=== PATIENT | female | born 1980 | race Hispanic/Latino ===

== ENCOUNTER 2017-03-20 14:06 | Inpatient (IN) | payer MEDICARE ==
[2017-03-20 15:40] LABS: Basophils % (Auto) 0.4 % (0.0-1.8); Eosinophils % (Auto) 4.1 % (0.0-4.3); Hematocrit 29.3 % (30.3-42.9); Hemoglobin 9.9 gm/dl (10.1-14.3); Mean Corpuscular HGB Conc 34 % (30-34); Mean Corpuscular Hemoglobin 33 pg (28-32); Mean Corpuscular Volume 99 fl (79-97); Platelet Count 161 K/mm3 (140-440); Red Blood Count 2.98 M/mm3 (3.65-5.03); Red Cell Distribution Width 14.3 % (13.2-15.2); White Blood Count 8.2 K/mm3 (4.5-11.0)
[2017-03-20 16:03] LABS: Anion Gap 22 mmol/L; BUN/Creatinine Ratio 7.81; Blood Urea Nitrogen 43 mg/dL (7-17); Calcium 7.9 mg/dL (8.4-10.2); Carbon Dioxide 16 mmol/L (22-30); Chloride 108.1 mmol/L (98-107); Glucose 99 mg/dL (65-100); Potassium 4.8 mmol/L (3.6-5.0); Sodium 141 mmol/L (137-145)
--- NOTE | 2017-03-20 22:06 | Emergency Department Report ---
HPI - General Chief Complaint: Dyspnea/Respdistress Time Seen by Provider: 03/20/17 21:25 - HPI HPI: This is a 36-year-old female presents to the emergency department from home, sent in by her occasional caregiver Dr. Clemons, with the complaint of no dialysis for the past 2-3 weeks. The patient says she used to see Dr. Yepez but she was "kicked out of the clinic" because of a "difference of opinion." Because of that she has not been to dialysis in the past 2-3 weeks. She complains of some shortness of breath and lower extremity swelling. She denies any fever, chest pain, back pain, nausea, vomiting. She has a left upper extremity fistula. She was born with kidney disease. She previously was on hemodialysis Saturday, Saturday, Saturday. She also has history of COPD, GERD, migraines, hypertension. No recent travel or sick contacts at home. She does not have a primary care doctor. She is a tobacco smoker. ED Past Medical Hx - Past Medical History Hx Hypertension: Yes Hx GERD: Yes Hx Renal Disease: Yes (BORN WITH KIDNEY DISEASE) Hx Arthritis: Yes Hx Headaches / Migraines: Yes (MIGRAINES) Hx Seizures: Yes (2011 NO MEDS NOW) Hx Asthma: Yes ( CHILD) Hx COPD: Yes Additional medical history: HD on . hydrocephalus. CAD - Surgical History Hx Cholecystectomy: Yes Additional Surgical History: Perm cath right chest, left arm AV fistula, Ureter surgery, Removal of left kidney, AV shunt in head, Abd. shunt, Spinal cord stimulator, Sinus surgery, Deviated septum surgery, Hysterectomy - Social History Smoking Status: Current Every Day Smoker Substance Use Type: None - Medications Home Medications: Home Medications Medication Instructions Recorded Confirmed Last Taken Type Metoclopramide [Reglan TAB] 5 mg PO 4XD 08/09/15 03/20/17 10/25/16 04:30 History Promethazine [Phenergan TAB] 25 mg PO Q6HR PRN 08/09/15 03/20/17 10/24/16 History Sevelamer Carbonate [Renvela] 800 mg PO TIDWM 08/09/15 03/20/17 10/25/16 04:30 History Albuterol Sulfate [Proair Hfa] 2 puff INHALATION BID PRN 06/14/16 03/20/1710/24 History AtorvaSTATin [Lipitor] 40 mg PO QHS #30 tablet 06/14/16 03/20/17 10/24/16 Rx Oxycodone HCl/Acetaminophen 1 tab PO Q4H PRN 06/14/16 03/20/17 10/24/16 History [Percocet 10/325 mg] Tiotropium [place] [Spiriva] 1 cap INHALATION DAILY 06/14/16 03/20/17 10/24/16 History Vit B Cplx #11/FA/C/Biot/Zn Ox 800 mg PO DAILY 06/14/16 03/20/17 10/25/16 04:30 History [Dialyvite with Zinc Tablet] Zolpidem [Ambien] 10 mg PO QHS 10/23/16 03/20/17 10/24/16 History Pantoprazole Sodium 1 tab PO QDAY 10/25/16 03/20/17 10/25/16 04:30 History Budesoni/Formotero 160-4.5(Nf) 2 puff IH BID 03/20/17 03/20/17 Unknown History [Symbicort 160-4.5 (Nf)] lamoTRIgine [LaMICtal] 150 mg PO BID 03/20/17 03/20/17 Unknown History ED Review of Systems ROS: Stated complaint: SWOLLEN Other details as noted in HPI Comment: All other systems reviewed and negative Constitutional: denies: chills, fever Eyes: denies: eye pain, eye discharge, vision change ENT: denies: ear pain, throat pain Respiratory: shortness of breath. denies: cough Cardiovascular: edema. denies: chest pain Gastrointestinal: denies: abdominal pain, nausea, diarrhea Genitourinary: denies: urgency, dysuria, discharge Musculoskeletal: denies: back pain, joint swelling, arthralgia Skin: denies: rash, lesions Neurological: denies: headache, weakness, paresthesias Physical Exam - Physical Exam Vital Signs: Vital Signs 03/20/17 15:06 Temperature 97.7 F Pulse Rate 86 Respiratory 20 Rate Blood Pressure 125/78 O2 Sat by Pulse 96 Oximetry Physical Exam: GENERAL: The patient is well-developed well-nourished. HEENT: Normocephalic. Atraumatic. Extraocular motions are intact. Patient has moist mucous membranes. Pupils equal reactive to light bilaterally. NECK: Supple. Trachea is midline. CHEST/LUNGS: Coarse breath sounds at the chest. No tachypnea or accessory muscle use. There is no respiratory distress noted. HEART/CARDIOVASCULAR: Regular. There is no tachycardia. There is no gallop rub or murmur. ABDOMEN: Abdomen is soft, nontender. Patient has normal bowel sounds. There is no abdominal distention. SKIN: There is some mild pitting edema to the bilateral lower extremities. No skin color change. Skin is warm and dry. NEURO: The patient is awake, alert, and oriented. The patient is cooperative. The patient has no focal neurologic deficits. The patient has normal speech. MUSCULOSKELETAL: There is no tenderness or deformity. There is no limitation range of motion. There is no evidence of acute injury. Patent dialysis fistula to the left upper extremity. ED Course Vital Signs 03/20/17 15:06 Temperature 97.7 F Pulse Rate 86 Respiratory 20 Rate Blood Pressure 125/78 O2 Sat by Pulse 96 Oximetry - Consultations Consultation #1: I spoke with the patient's new occasional caregiver, Dr. Clemons, who asked patient to be admitted to the hospitalist service and the patient will receive dialysis tomorrow. 03/20/17 22:11 ED Medical Decision Making - Lab Data Result diagrams: 03/20/17 15:13 03/20/17 15:13 - EKG Data -: EKG Interpreted by Me EKG shows normal: sinus rhythm, axis, intervals, QRS complexes (q waves to anterior leads), ST-T waves Rate: normal - EKG Data When compared to previous EKG there are: no significant change Interpretation: unchanged when compared t (05/19/16) - Radiology Data Radiology results: image reviewed interpreted by me: Chest x-ray shows some cardiomegaly and some pulmonary vascular congestion. Mild basilar pleural effusions. - Medical Decision Making 36-year-old female presents in need of dialysis after not receiving dialysis for the past 2-3 weeks. Sent in by her current occasional caregiver who has been contacted and would like the patient dialyzed tomorrow but admitted to the hospitalist service. There is no hyperkalemia. Vital signs stable. Patient is not in any acute distress. Patient has been accepted for admission by the hospitalist, Dr. Lopez. - Differential Diagnosis CHF, renal insufficiency, pneumonia Critical Care Time: No Critical care attestation.: If time is entered above; I have spent that time in minutes in the direct care of this critically ill patient, excluding procedure time. ED Disposition Clinical Impression: End stage renal disease on dialysis, Shortness of breath Edema Qualifiers: Edema type: unspecified Qualified Code(s): R60.9 - Edema, unspecified Disposition: OP ADMITTED IP TO THIS HOSP Is pt being admited?: Yes Condition: Stable Referrals: JADYN CLEMONS MD [Primary Care Provider] - 3-5 Days Time of Disposition: 23:01
[2017-03-20] MEDS ORDERED: PERCOCET 5/325 PO ONE (22:32)
--- NOTE | 2017-03-20 23:52 | History and Physical Report ---
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 Patient was also has a history of pseudotumor cerebri, hypertension, seizure, COPD, GERD She also complaining of dysphagia to solid Patient denies cough, abdominal pain, hematochezia, dysuria, frequency, focal weakness, dysarthria, fever chills, polydipsia polyuria, hot or cold intolerance , easy bruisability, or rash or bleeding from mucosal membrane, rhinorrhea, epistaxis, earache, tinnitus, blurry vision, eye discharge, anxiety, depression. Other review of systems negative PAST SURGICAL HISTORY: Cholecystectomy, AV fistula, shunting membrane, left nephrectomy, spinal cord stimulator, sinus surgery, hysterectomy SOCIAL HISTORY: Smoke 5 cigarettes day, no alcohol or drugs FAMILY HISTORY: Hypertension Medications and Allergies Allergies Allergy/AdvReac Type Severity Reaction Status Date / Time cefaclor [From Ceclor] AdvReac Itching Verified 03/20/17 15:04 vancomycin AdvReac Rash Verified 03/20/17 15:04 Home Medications Medication Instructions Recorded Confirmed Last Taken Type Metoclopramide [Reglan TAB] 5 mg PO 4XD 08/09/15 03/20/17 10/25/16 04:30 History Promethazine [Phenergan TAB] 25 mg PO Q6HR PRN 08/09/15 03/20/17 10/24/16 History Sevelamer Carbonate [Renvela] 800 mg PO TIDWM 08/09/15 03/20/17 10/25/16 04:30 History Albuterol Sulfate [Proair Hfa] 2 puff INHALATION BID PRN 06/14/16 03/20/1710/24 History AtorvaSTATin [Lipitor] 40 mg PO QHS #30 tablet 06/14/16 03/20/17 10/24/16 Rx Oxycodone HCl/Acetaminophen 1 tab PO Q4H PRN 06/14/16 03/20/17 10/24/16 History [Percocet 10/325 mg] Tiotropium [place] [Spiriva] 1 cap INHALATION DAILY 06/14/16 03/20/17 10/24/16 History Vit B Cplx #11/FA/C/Biot/Zn Ox 800 mg PO DAILY 06/14/16 03/20/17 10/25/16 04:30 History [Dialyvite with Zinc Tablet] Zolpidem [Ambien] 10 mg PO QHS 10/23/16 03/20/17 10/24/16 History Pantoprazole Sodium 1 tab PO QDAY 10/25/16 03/20/17 10/25/16 04:30 History Budesoni/Formotero 160-4.5(Nf) 2 puff IH BID 03/20/17 03/20/17 Unknown History [Symbicort 160-4.5 (Nf)] lamoTRIgine [LaMICtal] 150 mg PO BID 03/20/17 03/20/17 Unknown History Exam - Physical Exam Narrative exam: Gen. appearance: Patient lying in bed, no apparent distress HEENT: Normocephalic, atraumatic, pupils equally round and reactive to light, extraocular movement intact, and no sclericterus,. No JVD or thyromegaly or nodule,neck supple, no carotid bruit ,mucous membranes moist, no exudate or erythema Heart: S1, S2, regular rate and rhythm Lungs: Clear to auscultation bilaterally, breathing comfortable Abdomen: Positive bowel sounds, nontender, nondistended, no organomegaly Extremity: No edema, cyanosis, clubbing Skin: No rash, nodules, warm, dry Neuro: Oriented 3, cranial nerves II-12 intact, speech is fluent, motor and sensory intact - Constitutional Vitals: Temp Pulse Resp BP Pulse Ox 97.7 F 86 20 125/78 96 03/20/17 15:06 03/20/17 15:06 03/20/17 15:06 03/20/17 15:06 03/20/17 15:06 Results - Labs CBC & Chem 7: 03/20/17 15:13 03/20/17 15:13 Labs: Abnormal lab results 03/20/17 03/20/17 Range/Units 15:13 15:13 RBC 2.98 L (3.65-5.03) M/mm3 Hgb 9.9 L (10.1-14.3) gm/dl Hct 29.3 L (30.3-42.9) % MCV 99 H (79-97) fl MCH 33 H (28-32) pg Chloride 108.1 H (98-107) mmol/L Carbon Dioxide 16 L (22-30) mmol/L BUN 43 H (7-17) mg/dL Creatinine 5.5 H (0.7-1.2) mg/dL Calcium 7.9 L (8.4-10.2) mg/dL NT-Pro-B Natriuret Pep 2689 H (0-450) pg/mL - Imaging and Cardiology EKG: image reviewed Chest x-ray: image reviewed Assessment and Plan End-stage renal disease on dialysis Dysphagia Hypertension Seizure COPD GERD Pseudotumor cerebri Obesity Admit to medicine Consult renal for dialysis, consult GI Continue appropriate outpatient medication, start DVT prophylaxis
[2017-03-20] MEDS ORDERED: ZOFRAN IV ONE (23:55)
[2017-03-21] MEDS ORDERED: TYLENOL PO PRN (00:52)
[2017-03-21] MEDS ORDERED: MILK OF MAGNESIA PO PRN (00:52)
[2017-03-21] MEDS ORDERED: DULCOLAX PR PRN (00:52)
[2017-03-21] MEDS ORDERED: ZOFRAN IV PRN (00:52)
[2017-03-21] MEDS ORDERED: NON-FORMULARY (Oxycodone Hcl/Acetaminophen [Percocet 10/325 Mg] 1 TAB) PO PRN (01:10)
[2017-03-21] MEDS ORDERED: PERCOCET 5/325 PO PRN (01:29)
[2017-03-21] MEDS ORDERED: ROXICODONE PO PRN (01:30)
--- NOTE | 2017-03-21 05:38 | Consultation ---
History of Present Illness - Reason for Consult Consult date: 03/20/17 end stage renal disease, metabolic acidosis, other (Volume overload) - History of Present Illness Patient is a 36-year-old female with history significant for COPD, GERD, migraines, hypertension and ESRD on hemodialysis(MWF) was sent to the ER from my office for further evaluation. Patient was last dialyzed on the February,. She was discharged from [facility] hemodialysis, the reasons are unknown. Patient complains of some shortness of breath and lower extremity swelling. She denies any fever, chills, chest pain, nausea, vomiting , abd pain, cough, orthopnea, PND or confusion. She has a left upper extremity fistula. She does not have a primary care doctor. Past History Past Medical History: anemia, diabetes, dialysis, ESRD, hypertension Past Surgical History: Other (AVF creation) Medications and Allergies Allergies Allergy/AdvReac Type Severity Reaction Status Date / Time cefaclor [From Ceclor] AdvReac Itching Verified 03/20/17 15:04 vancomycin AdvReac Rash Verified 03/20/17 15:04 Home Medications Medication Instructions Recorded Confirmed Last Taken Type Metoclopramide [Reglan TAB] 5 mg PO 4XD 08/09/15 03/20/17 10/25/16 04:30 History Promethazine [Phenergan TAB] 25 mg PO Q6HR PRN 08/09/15 03/20/17 10/24/16 History Sevelamer Carbonate [Renvela] 800 mg PO TIDWM 08/09/15 03/20/17 10/25/16 04:30 History Albuterol Sulfate [Proair Hfa] 2 puff INHALATION BID PRN 06/14/16 03/20/1710/24 History AtorvaSTATin [Lipitor] 40 mg PO QHS #30 tablet 06/14/16 03/20/17 10/24/16 Rx Oxycodone HCl/Acetaminophen 1 tab PO Q4H PRN 06/14/16 03/20/17 10/24/16 History [Percocet 10/325 mg] Tiotropium [place] [Spiriva] 1 cap INHALATION DAILY 06/14/16 03/20/17 10/24/16 History Vit B Cplx #11/FA/C/Biot/Zn Ox 800 mg PO DAILY 06/14/16 03/20/17 10/25/16 04:30 History [Dialyvite with Zinc Tablet] Zolpidem [Ambien] 10 mg PO QHS 10/23/16 03/20/17 10/24/16 History Pantoprazole Sodium 1 tab PO QDAY 10/25/16 03/20/17 10/25/16 04:30 History Budesoni/Formotero 160-4.5(Nf) 2 puff IH BID 03/20/17 03/20/17 Unknown History [Symbicort 160-4.5 (Nf)] lamoTRIgine [LaMICtal] 150 mg PO BID 03/20/17 03/20/17 Unknown History Active Meds: Active Medications Acetaminophen (Tylenol) 650 mg PO Q4H PRN PRN Reason: Pain MILD(1-3)/Fever >100.5/WHITE Arformoterol Tartrate (Brovana Nebu) 15 mcg IH Q12HRT [facility] Atorvastatin Calcium (Lipitor) 40 mg PO QHS [facility] Bisacodyl (Dulcolax) 10 mg DE QDAY PRN PRN Reason: Constipation unrelieved by MOM Budesonide (Pulmicort) 1 mg IH Q12HRT [facility] Lamotrigine (Lamictal) 150 mg PO BID [facility] Magnesium Hydroxide (Milk Of Magnesia) 30 ml PO Q4H PRN PRN Reason: Constipation Metoclopramide HCl (Reglan) 5 mg PO ACHS [facility] Ondansetron HCl (Zofran) 4 mg IV Q8H PRN PRN Reason: N/V unrelieved by Reglan Oxycodone HCl (Roxicodone) 5 mg PO Q4H PRN PRN Reason: Pain Oxycodone/Acetaminophen (Percocet 5/325) 1 tab PO Q4H PRN PRN Reason: Pain Pantoprazole Sodium (Protonix) 40 mg PO QDAY [facility] Sevelamer Carbonate (Renvela) 800 mg PO TIDWM [facility] Vitamin B Complex/Folic Acid (Folbee Plus Cz) 1 each PO QDAY [facility] Review of Systems Constitutional: weight gain, chronic pain, no weight loss, no fever, no chills, no anorexia, no fatigue, no weakness, no poor appetite Ears, nose, mouth and throat: no sinus pressure, no sinus pain, no epistaxis Breasts: deferred Cardiovascular: edema, shortness of breath, dyspnea on exertion, high blood pressure, leg edema, no chest pain, no orthopnea, no syncope, no lightheadedness Respiratory: no cough, no hemoptysis Gastrointestinal: no abdominal pain, no nausea, no vomiting, no diarrhea, no melena Genitourinary Female: no dysuria, no hematuria Rectal: no bleeding Musculoskeletal: no neck stiffness, no hot joints, no morning stiffness Integumentary: no rash, no jaundice Neurological: no head injury, no paralysis, no weakness, no syncope Psychiatric: no change in appetite, no confusion Endocrine: weight change, no excessive sweating Hematologic/Lymphatic: no easy bruising, no easy bleeding Exam - Vital Signs Vital signs: Vital Signs Temp Pulse Resp BP Pulse Ox 97.7 F 86 20 125/78 96 03/20/17 15:06 03/20/17 15:06 03/20/17 15:06 03/20/17 15:06 03/20/17 15:06 - General Appearance General appearance: well-developed, well-nourished, appears stated age, other ( no distress) EENT: ATNC, PERRL, mucous membranes moist, hearing intact, vision intact Neck: Present: neck supple, trachea midline Respiratory: Clear to Ascultation Heart: regular, S1S2, no murmurs Gastrointestinal: Present: normoactive bowel sounds. Absent: tenderness, distended Integumentary: no rash, warm and dry Neurologic: no focal deficit, no asterixis, alert and oriented x3, CN 3-12 intact Musculoskeletal: Present: other (1+ pitting edema of both LEs noted) Results - Lab Results 03/20/17 15:13 03/20/17 15:13 Most recent lab results Calcium 7.9 mg/dL (8.4-10.2) L 03/20/17 15:13 Assessment and Plan - Patient Problems (1) End stage renal disease on dialysis Status: Chronic Plan to address problem: Patient missed hemodialysis for the past 2 weeks. Plan to do hemodialysis in AM. (2) Edema Status: Chronic Qualifiers: Edema type: unspecified Malnutrition edema type: M Trimester: T Qualified Code(s): R60.9 - Edema, unspecified Plan to address problem: UF with hemodialysis. (3) Shortness of breath Status: Acute Plan to address problem: Clinically stable. Monitor. Hemodialysis in AM. (4) Anemia associated with chronic renal failure Status: Chronic Plan to address problem: Epogen.
[2017-03-21] MEDS ORDERED: REGLAN PO SCH (07:30)
[2017-03-21] MEDS ORDERED: PULMICORT IH SCH (08:00)
[2017-03-21] MEDS ORDERED: BROVANA NEBU IH SCH (08:00)
[2017-03-21] MEDS ORDERED: RENVELA PO SCH (08:00)
[2017-03-21] MEDS ORDERED: NACL 0.9% 100 ML IV PRN (08:43)
--- NOTE | 2017-03-21 08:43 | Progress Note ---
Subjective Date of service: 03/21/17 Interval history: Patient left AMA before I can see her. She called me later this afternoon. No new symptoms. Patient was advised to go back to the nearest ER for further evaluation. She wants to go to [facility] ER. Objective - Vital Signs Vital signs: Vital Signs - 12hr 03/21/17 03/21/17 03/21/17 00:00 00:10 00:20 Pulse Rate 84 93 H 85 Respiratory 13 17 12 Rate Blood Pressure 141/70 141/70 107/55 O2 Sat by Pulse 96 98 98 Oximetry 03/21/17 03/21/17 03/21/17 00:28 03:41 06:12 Pulse Rate 81 Respiratory 20 Rate Blood Pressure O2 Sat by Pulse 98 96 Oximetry - Lab 03/20/17 15:13 03/20/17 15:13 Most recent lab results Calcium 7.9 mg/dL (8.4-10.2) L 03/20/17 15:13
[2017-03-21 08:54] VITALS: BP 120/71
--- NOTE | 2017-03-21 09:09 | XRay Report ---
CHEST 2 VIEWS INDICATION: Shortness of breath. Dialysis patient. COMPARISON: 11/06/2016 FINDINGS: Frontal and lateral chest radiographs demonstrate greater prominence of lung markings and slightly exaggerated cardiomediastinal silhouette, possibly congestive. No large pleural effusions or cephalization. 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 Interval right sided central catheter removal. Mild mid thoracic spine degenerative spurring. Possible cholecystectomy clips. CONCLUSION: Slight fluid overload/pulmonary vascular congestion developing with interval right sided central catheter removal since October 2016, as described. Please correlate. Thank you for the opportunity to participate in this patient's care.
--- NOTE | 2017-03-21 09:55 | Admit Criteria Form ---
Admission Criteria Documentation: RENAL FAILURE, CHRONIC Clinical Indications for Admission to Inpatient Care (Place 'X' for any and all applicable criteria): Admission is indicated for ANY ONE of the following (1)(2)(3)(4)(5): [X ]I. Inpatient admission required rather than observation care (Use Renal Failure, Chronic: Observation Care Criteria as appropriate) because of ANY ONE of the following: [ ]a) Volume overload or uremic symptoms (eg, clinically significant pulmonary edema, hypertension, pericarditis, acidosis) too severe for, or not responsive (eg, for over 24 hours) to emergency department or observation care dialysis or treatment regimen (11) [ ]b) Hemodynamic instability that is severe or persistent [ ]c) Respiratory distress that is severe or persistent (11) [ ]d) Clinically significant electrolyte abnormality that requires inpatient care (eg,hyperkalemia with severe ECG findings)[B] [ ]e) Supplement O2 or respiratory therapy for over 24hrs that is performable only in acute inpatient setting [ ]f) Continuous IV infusion of anticoagulation, platelet inhibitor, vasoactive, or Antiarrhythmic medication (15), [ ]g) Pulmonary artery catheter monitoring [ ]h) Temporary pacemaker placement [ ]i) Emergent pericardiocentesis [X ]j) Other condition, treatment or monitoring requiring inpatient admission [ ]II. Unexplained syncope [A] [ ]III. Recurrent seizures [ ]IV. Severe infections not treatable in outpatient setting (eg, peritonitis)(9 ) [ ]V. Cardiac arrhythmias of immediate concern [ ]. Encephalopathy [ ]VII.Bleeding abnormalities (eg, platelet dysfunction) with active (eg, gastrointestinal) bleeding Extended stay beyond goal length of stay may be needed for (3)(4)(35)(36): [ ]a) Continuing uremic complications [ ]b) Comorbidities or complications The original [employer] content created by [employer] has been revised. The portions of the content which have been revised are identified through the use of italic text or in bold, and [employer] has neither reviewed nor approved the modified material. All other unmodified content is copyright [employer]. Please see references footnoted in the original [employer] edition 2016
[2017-03-21] MEDS ORDERED: ZINC PO SCH (10:00)
[2017-03-21] MEDS ORDERED: VIT B CPLX PO SCH (10:00)
[2017-03-21] MEDS ORDERED: NON-FORMULARY (Budesoni/Formotero 160-4.5(Nf) 2 PUFF) IH SCH (10:00)
[2017-03-21] MEDS ORDERED: BIOT PO SCH (10:00)
[2017-03-21] MEDS ORDERED: ZN OX PO SCH (10:00)
[2017-03-21] MEDS ORDERED: NON-FORMULARY (Lamotrigine [Lamictal] 150 MG) PO SCH (10:00)
[2017-03-21] MEDS ORDERED: PROTONIX PO SCH (10:00)
[2017-03-21] MEDS ORDERED: LaMICtal PO SCH (10:00)
[2017-03-21] MEDS ORDERED: PROCRIT SUB-Q ONE (10:00)
[2017-03-21] MEDS ORDERED: [UNRECOGNIZED DRUG - OTHER] PO SCH (10:00)
[2017-03-21] MEDS ORDERED: FOLBEE PLUS CZ PO SCH (10:00)
--- NOTE | 2017-03-21 10:47 | Discharge Summary ---
Providers - Providers Date of Admission: 03/20/17 23:51 Attending physician: ALEKSANDR BELL Primary care physician: JADYN CLEMONS Hospitalization Condition: Stable Hospital course: Left AMA before been seen. Disposition: LEFT AGAINST MEDICAL ADVICE Core Measure Documentation - Palliative Care Palliative Care/ Comfort Measures: Not Applicable - Core Measures Any of the following diagnoses?: none Exam - Constitutional Vitals: Temp Pulse Resp BP Pulse Ox 97.8 F 87 18 120/71 97 03/21/17 08:52 03/21/17 08:52 03/21/17 08:52 03/21/17 08:52 03/21/17 08:52 Plan Follow up with: JADYN CLEMONS MD [Primary Care Provider] - 3-5 Days Forms: AMA Form
== END 2017-03-21 09:05 | disposition left against medical advice (07) | DRG 640 ==
LOC: ED 14:06 → 4A 23:51
PROVIDERS: ADMIT Internal Medicine; ATTEND Internal Medicine
PROC: 5A09357 Assistance with Respiratory Ventilation, Less than 24 Consecutive Hours, Continuous Positive Airway Pressure (ICD-10-PCS; principal; 2017-03-21)
DX: E87.70 Fluid overload, unspecified (principal); N18.6 End stage renal disease; I12.0 Hypertensive chronic kidney disease with stage 5 chronic kidney disease or end stage renal disease; Z68.41 Body mass index [BMI] 40.0-44.9, adult; J44.9 Chronic obstructive pulmonary disease, unspecified; R56.9 Unspecified convulsions; K21.9 Gastro-esophageal reflux disease without esophagitis; G93.2 Benign intracranial hypertension; E66.9 Obesity, unspecified; G43.909 Migraine, unspecified, not intractable, without status migrainosus; M19.90 Unspecified osteoarthritis, unspecified site; F17.200 Nicotine dependence, unspecified, uncomplicated; R13.10 Dysphagia, unspecified; E11.22 Type 2 diabetes mellitus with diabetic chronic kidney disease; D63.1 Anemia in chronic kidney disease; Z90.49 Acquired absence of other specified parts of digestive tract; Z90.710 Acquired absence of both cervix and uterus; Z90.5 Acquired absence of kidney; Z99.2 Dependence on renal dialysis; Z82.49 Family history of ischemic heart disease and other diseases of the circulatory system; Z88.1 Allergy status to other antibiotic agents
CPT/HCPCS: 36415; 71020; 80048; 83880; 84484; 85025; 93005; 93010; 94660; 96374; J2405

== ENCOUNTER 2017-06-12 12:12 | Outpatient (CLI) | payer MEDICARE ==
[2017-06-12 12:51] LABS: Basophils % (Auto) 0.3 % (0.0-1.8); Eosinophils % (Auto) 2.5 % (0.0-4.3); Hematocrit 39.4 % (30.3-42.9); Hemoglobin 13.2 gm/dl (10.1-14.3); Mean Corpuscular HGB Conc 34 % (30-34); Mean Corpuscular Hemoglobin 31 pg (28-32); Mean Corpuscular Volume 94 fl (79-97); Platelet Count 140 K/mm3 (140-440); Red Blood Count 4.22 M/mm3 (3.65-5.03); Red Cell Distribution Width 12.1 % (13.2-15.2); White Blood Count 6.6 K/mm3 (4.5-11.0)
[2017-06-12 13:03] LABS: Bacteria,Urine 1+ /HPF (Negative); Bilirubin,Urine NEG (Negative); Blood,Urine SM (Negative); Ketones,Urine NEG (Negative); Leukocyte Esterase,Urine NEG (Negative); Mucus,Urine FEW /HPF; Nitrite,Urine NEG (Negative); Urobilinogen,Urine < 2.0 mg/dL (<2.0)
[2017-06-12 13:04] LABS: Protein,Urine >500 mg/dL (Negative)
[2017-06-12 13:14] LABS: Albumin 3.8 g/dL (3.9-5); Albumin/Globulin Ratio 1.4 %; BUN/Creatinine Ratio 5.09; Bilirubin,Total 0.3 mg/dL (0.1-1.2); Calcium 8.7 mg/dL (8.4-10.2); Chloride 104.8 mmol/L (98-107); Magnesium 1.9 mg/dL (1.7-2.3); Phosphorous 3.2 mg/dL (2.5-4.5); Potassium 4.4 mmol/L (3.6-5.0); Total Protein 6.6 g/dL (6.3-8.2)
== END 2017-06-12 12:13 | disposition home or self-care (01) ==
LOC: LAB 12:12
PROVIDERS: ATTEND Internal Medicine Nephrology
DX: I12.0 Hypertensive chronic kidney disease with stage 5 chronic kidney disease or end stage renal disease (principal); N18.5 Chronic kidney disease, stage 5; D63.1 Anemia in chronic kidney disease; E78.00 Pure hypercholesterolemia, unspecified; J44.9 Chronic obstructive pulmonary disease, unspecified; J45.909 Unspecified asthma, uncomplicated; F17.200 Nicotine dependence, unspecified, uncomplicated
CPT/HCPCS: 36415; 80053; 81001; 83735; 83970; 84100; 85025

== ENCOUNTER 2017-07-08 11:32 | Outpatient (CLI) | payer MEDICARE ==
[2017-07-08 12:07] LABS: Bacteria,Urine 1+ /HPF (Negative); Bilirubin,Urine NEG (Negative); Blood,Urine NEG (Negative); Ketones,Urine NEG (Negative); Leukocyte Esterase,Urine NEG (Negative); Mucus,Urine FEW /HPF; Nitrite,Urine NEG (Negative); RBC,Urine < 1.0 /HPF (0.0-6.0); Urobilinogen,Urine < 2.0 mg/dL (<2.0)
[2017-07-08 12:11] LABS: BUN/Creatinine Ratio 5.89; Calcium 8.1 mg/dL (8.4-10.2); Chloride 104.4 mmol/L (98-107); Phosphorous 4.3 mg/dL (2.5-4.5); Potassium 4.4 mmol/L (3.6-5.0)
== END 2017-07-08 11:33 | disposition home or self-care (01) ==
LOC: LAB 11:32
PROVIDERS: ATTEND Internal Medicine Nephrology
DX: I12.0 Hypertensive chronic kidney disease with stage 5 chronic kidney disease or end stage renal disease (principal); N18.6 End stage renal disease; D63.1 Anemia in chronic kidney disease; J44.9 Chronic obstructive pulmonary disease, unspecified; F32.9 Major depressive disorder, single episode, unspecified; F41.9 Anxiety disorder, unspecified; E78.00 Pure hypercholesterolemia, unspecified; F17.200 Nicotine dependence, unspecified, uncomplicated
CPT/HCPCS: 36415; 80048; 81001; 84100

== ENCOUNTER 2017-09-05 11:22 | Outpatient (CLI) | payer MEDICARE ==
[2017-09-05 11:48] LABS: Bacteria,Urine 1+ /HPF (Negative); Bilirubin,Urine NEG (Negative); Blood,Urine SM (Negative); Ketones,Urine NEG (Negative); Leukocyte Esterase,Urine NEG (Negative); Nitrite,Urine NEG (Negative); Urobilinogen,Urine < 2.0 mg/dL (<2.0)
[2017-09-05 12:00] LABS: Calcium 8.3 mg/dL (8.4-10.2); Chloride 102.6 mmol/L (98-107); Phosphorous 3.2 mg/dL (2.5-4.5); Potassium 5.1 mmol/L (3.6-5.0)
== END 2017-09-05 11:23 | disposition home or self-care (01) ==
LOC: LAB 11:22
PROVIDERS: ATTEND Internal Medicine Nephrology
DX: I12.0 Hypertensive chronic kidney disease with stage 5 chronic kidney disease or end stage renal disease (principal); N18.5 Chronic kidney disease, stage 5; F32.9 Major depressive disorder, single episode, unspecified; F41.9 Anxiety disorder, unspecified; F17.200 Nicotine dependence, unspecified, uncomplicated; Z79.899 Other long term (current) drug therapy
CPT/HCPCS: 36415; 80048; 81001; 84100

== ENCOUNTER 2018-02-17 07:26 | Emergency (ER) | payer MEDICARE ==
[2018-02-17 08:13] VITALS: BP 132/77
[2018-02-17 08:28] LABS: Basophils % (Auto) 0.4 % (0.0-1.8); Eosinophils # (Auto) 0.5 K/mm3 (0.0-0.4); Eosinophils % (Auto) 5.4 % (0.0-4.3); Hematocrit 36.5 % (30.3-42.9); Lymphocytes # (Auto) 2.2 K/mm3 (1.2-5.4); Lymphocytes % (Auto) 25.2 % (13.4-35.0); Mean Corpuscular HGB Conc 33 % (30-34); Mean Corpuscular Hemoglobin 32 pg (28-32); Mean Corpuscular Volume 97 fl (79-97); Monocytes # (Auto) 0.5 K/mm3 (0.0-0.8); Monocytes % (Auto) 5.6 % (0.0-7.3); Platelet Count 193 K/mm3 (140-440); Red Blood Count 3.75 M/mm3 (3.65-5.03); Red Cell Distribution Width 12.6 % (13.2-15.2)
[2018-02-17 08:47] LABS: Albumin 3.7 g/dL (3.9-5); Calcium 8.6 mg/dL (8.4-10.2)
[2018-02-17 10:52] LABS: Bacteria,Urine 2+ /HPF (Negative); Bilirubin,Urine NEG (Negative); Blood,Urine NEG (Negative); Color,Urine Yellow (Yellow); Mucus,Urine FEW /HPF; Urobilinogen,Urine < 2.0 mg/dL (<2.0)
== END 2018-02-17 09:00 | disposition left against medical advice (07) ==
LOC: ED 07:26
DX: R10.9 Unspecified abdominal pain (principal); Z53.21 Procedure and treatment not carried out due to patient leaving prior to being seen by health care provider
CPT/HCPCS: 36415; 80053; 81001; 85025

== ENCOUNTER 2018-07-11 09:19 | Outpatient (CLI) | payer MEDICARE ==
[2018-07-11 10:21] LABS: Calcium 8.8 mg/dL (8.4-10.2)
== END 2018-07-11 09:20 | disposition home or self-care (01) ==
LOC: LAB 09:19
PROVIDERS: ATTEND Internal Medicine Nephrology
DX: G43.109 Migraine with aura, not intractable, without status migrainosus (principal); I25.10 Atherosclerotic heart disease of native coronary artery without angina pectoris; N18.6 End stage renal disease; F17.210 Nicotine dependence, cigarettes, uncomplicated
CPT/HCPCS: 36415; 80048

== ENCOUNTER 2018-12-05 10:51 | Outpatient (CLI) | payer MEDICARE ==
[2018-12-05 11:53] LABS: Albumin 3.8 g/dL (3.9-5); Calcium 8.4 mg/dL (8.4-10.2)
== END 2018-12-05 10:52 | disposition home or self-care (01) ==
LOC: LAB 10:51
PROVIDERS: ATTEND Internal Medicine Nephrology
DX: I12.0 Hypertensive chronic kidney disease with stage 5 chronic kidney disease or end stage renal disease (principal); N18.6 End stage renal disease; E78.00 Pure hypercholesterolemia, unspecified; J44.9 Chronic obstructive pulmonary disease, unspecified; E66.9 Obesity, unspecified; K21.9 Gastro-esophageal reflux disease without esophagitis; M19.90 Unspecified osteoarthritis, unspecified site; Z87.891 Personal history of nicotine dependence; Z90.89 Acquired absence of other organs; Z90.49 Acquired absence of other specified parts of digestive tract; Z90.710 Acquired absence of both cervix and uterus
CPT/HCPCS: 36415; 80048; 82040; 83970; 84100

== ENCOUNTER 2019-01-13 09:02 | Outpatient (CLI) | payer MEDICARE ==
[2019-01-13 09:21] LABS: Basophils % (Auto) 0.4 % (0.0-1.8); Eosinophils # (Auto) 0.2 K/mm3 (0.0-0.4); Eosinophils % (Auto) 2.5 % (0.0-4.3); Hematocrit 33.1 % (30.3-42.9); Hemoglobin 10.9 gm/dl (10.1-14.3); Lymphocytes # (Auto) 1.5 K/mm3 (1.2-5.4); Mean Corpuscular HGB Conc 33 % (30-34); Mean Corpuscular Volume 97 fl (79-97); Monocytes # (Auto) 0.6 K/mm3 (0.0-0.8); Monocytes % (Auto) 6.3 % (0.0-7.3); Platelet Count 196 K/mm3 (140-440); Red Blood Count 3.42 M/mm3 (3.65-5.03); Red Cell Distribution Width 13.6 % (13.2-15.2)
[2019-01-13 09:44] LABS: Albumin 3.5 g/dL (3.9-5); Calcium 7.7 mg/dL (8.4-10.2)
== END 2019-01-13 09:03 | disposition home or self-care (01) ==
LOC: LAB 09:02
PROVIDERS: ATTEND Internal Medicine Nephrology
DX: I12.0 Hypertensive chronic kidney disease with stage 5 chronic kidney disease or end stage renal disease (principal); N18.6 End stage renal disease; E78.00 Pure hypercholesterolemia, unspecified; E66.9 Obesity, unspecified; J45.909 Unspecified asthma, uncomplicated; K21.9 Gastro-esophageal reflux disease without esophagitis; Z90.89 Acquired absence of other organs; Z90.710 Acquired absence of both cervix and uterus; Z87.891 Personal history of nicotine dependence
CPT/HCPCS: 36415; 80048; 82040; 84100; 85025

== ENCOUNTER 2019-02-02 11:32 | Outpatient (CLI) | payer MEDICARE ==
[2019-02-02 12:17] LABS: Albumin 3.6 g/dL (3.9-5); Calcium 8.2 mg/dL (8.4-10.2)
== END 2019-02-02 11:33 | disposition home or self-care (01) ==
LOC: LAB 11:32
PROVIDERS: ATTEND Internal Medicine Nephrology
DX: I12.0 Hypertensive chronic kidney disease with stage 5 chronic kidney disease or end stage renal disease (principal); N18.6 End stage renal disease; E78.00 Pure hypercholesterolemia, unspecified; J44.9 Chronic obstructive pulmonary disease, unspecified; K21.9 Gastro-esophageal reflux disease without esophagitis; E66.9 Obesity, unspecified; M19.90 Unspecified osteoarthritis, unspecified site; Z90.49 Acquired absence of other specified parts of digestive tract; Z90.710 Acquired absence of both cervix and uterus; Z90.89 Acquired absence of other organs; R73.09 Other abnormal glucose
CPT/HCPCS: 36415; 80048; 82040; 83036; 83970; 84100

== ENCOUNTER 2019-03-02 10:15 | Outpatient (CLI) | payer MEDICARE ==
[2019-03-02 10:39] LABS: Basophils % (Auto) 0.4 % (0.0-1.8); Eosinophils # (Auto) 0.3 K/mm3 (0.0-0.4); Eosinophils % (Auto) 3.8 % (0.0-4.3); Hematocrit 36.1 % (30.3-42.9); Lymphocytes # (Auto) 2.4 K/mm3 (1.2-5.4); Lymphocytes % (Auto) 32.7 % (13.4-35.0); Mean Corpuscular HGB Conc 33 % (30-34); Mean Corpuscular Volume 97 fl (79-97); Monocytes # (Auto) 0.3 K/mm3 (0.0-0.8); Monocytes % (Auto) 4.8 % (0.0-7.3); Platelet Count 183 K/mm3 (140-440); Red Blood Count 3.72 M/mm3 (3.65-5.03); Red Cell Distribution Width 12.5 % (13.2-15.2)
[2019-03-02 11:03] LABS: Albumin 3.5 g/dL (3.9-5); Calcium 7.4 mg/dL (8.4-10.2)
== END 2019-03-02 10:16 | disposition home or self-care (01) ==
LOC: LAB 10:15
PROVIDERS: ATTEND Internal Medicine Nephrology
DX: I12.0 Hypertensive chronic kidney disease with stage 5 chronic kidney disease or end stage renal disease (principal); N18.6 End stage renal disease; E78.00 Pure hypercholesterolemia, unspecified; J45.909 Unspecified asthma, uncomplicated; K21.9 Gastro-esophageal reflux disease without esophagitis; E66.9 Obesity, unspecified; Z90.89 Acquired absence of other organs; Z90.710 Acquired absence of both cervix and uterus
CPT/HCPCS: 36415; 80048; 82040; 84100; 85025

== ENCOUNTER 2019-06-09 08:24 | Outpatient (CLI) | payer MEDICARE ==
[2019-06-09 08:56] LABS: Basophils # (Auto) 0.1 K/mm3 (0.0-0.1); Basophils % (Auto) 0.9 % (0.0-1.8); Eosinophils # (Auto) 0.4 K/mm3 (0.0-0.4); Eosinophils % (Auto) 6.6 % (0.0-4.3); Hematocrit 33.5 % (30.3-42.9); Hemoglobin 10.9 gm/dl (10.1-14.3); Lymphocytes # (Auto) 2.2 K/mm3 (1.2-5.4); Lymphocytes % (Auto) 36.7 % (13.4-35.0); Mean Corpuscular HGB Conc 33 % (30-34); Mean Corpuscular Volume 98 fl (79-97); Monocytes # (Auto) 0.3 K/mm3 (0.0-0.8); Monocytes % (Auto) 5.5 % (0.0-7.3); Platelet Count 144 K/mm3 (140-440); Red Blood Count 3.43 M/mm3 (3.65-5.03); Red Cell Distribution Width 13.2 % (13.2-15.2)
[2019-06-09 09:24] LABS: Albumin 3.9 g/dL (3.9-5)
== END 2019-06-09 08:25 | disposition home or self-care (01) ==
LOC: LAB 08:24
PROVIDERS: ATTEND Internal Medicine Nephrology
DX: N18.6 End stage renal disease (principal); I12.0 Hypertensive chronic kidney disease with stage 5 chronic kidney disease or end stage renal disease; E78.00 Pure hypercholesterolemia, unspecified; J44.9 Chronic obstructive pulmonary disease, unspecified; K21.9 Gastro-esophageal reflux disease without esophagitis; Z90.89 Acquired absence of other organs
CPT/HCPCS: 36415; 80048; 82040; 84100; 85025

== ENCOUNTER 2019-07-06 10:10 | Outpatient (CLI) | payer MEDICARE ==
[2019-07-06 10:51] LABS: Albumin 3.4 g/dL (3.9-5); Calcium 7.5 mg/dL (8.4-10.2)
== END 2019-07-06 10:11 | disposition home or self-care (01) ==
LOC: LAB 10:10
PROVIDERS: ATTEND Internal Medicine Nephrology
DX: I12.0 Hypertensive chronic kidney disease with stage 5 chronic kidney disease or end stage renal disease (principal); N18.6 End stage renal disease; E78.00 Pure hypercholesterolemia, unspecified; J44.9 Chronic obstructive pulmonary disease, unspecified; K21.9 Gastro-esophageal reflux disease without esophagitis; E66.9 Obesity, unspecified; Z90.89 Acquired absence of other organs
CPT/HCPCS: 36415; 80048; 82040; 84100

== ENCOUNTER 2019-09-14 11:19 | Outpatient (CLI) | payer MEDICARE ==
[2019-09-14 12:08] LABS: Albumin 3.5 g/dL (3.9-5)
== END 2019-09-14 11:20 | disposition home or self-care (01) ==
LOC: LAB 11:19
PROVIDERS: ATTEND Internal Medicine Nephrology
DX: I12.0 Hypertensive chronic kidney disease with stage 5 chronic kidney disease or end stage renal disease (principal); N18.6 End stage renal disease; I25.10 Atherosclerotic heart disease of native coronary artery without angina pectoris; E78.00 Pure hypercholesterolemia, unspecified; J44.9 Chronic obstructive pulmonary disease, unspecified; K21.9 Gastro-esophageal reflux disease without esophagitis; M19.90 Unspecified osteoarthritis, unspecified site; Z90.710 Acquired absence of both cervix and uterus
CPT/HCPCS: 36415; 80048; 82040; 84100